=== PATIENT | male | born 1995 | race Caucasian/White ===

== ENCOUNTER 2020-08-23 01:27 | Emergency (ER) | payer OTHER ==
[2020-08-23 01:33] VITALS: BP 137/94; PULSE 80; RESP 18; TEMP 97.7
[2020-08-23] MEDS ORDERED: CEPHALEXIN 500 MG CAP PO STA (02:11)
[2020-08-23] MEDS ORDERED: metroNIDAZOLE 500 MG TAB PO STA (02:12)
--- NOTE | 2020-08-23 02:14 | ED ---
Animal Bite HPI - General Chief Complaint: Animal Bite Stated Complaint: Dog Bite Time Seen by Provider: 08/23/20 01:50 Source: patient, family - History of Present Illness Initial Comments: Patient is a 25-year-old male presenting to the emergency Department with complaints of a dog bite wound to his left hand. Patient states his dog was having a seizure this evening and when the dog was coming out of it, he had his hand too close to the dog bit his left hand. He has puncture wounds near his second metacarpophalangeal joint. He states his tetanus vaccine is up-to-date. The dog's vaccines including rabies are also up-to-date. He has no further complaints at this time. - Related Data Previous Rx's Medication Instructions Recorded Cefuroxime Axetil [Ceftin] 500 mg PO BID 7 Days #14 tab 08/23/20 metroNIDAZOLE [Flagyl] 500 mg PO TID 7 Days #21 tab 08/23/20 Allergies Allergy/AdvReac Type Severity Reaction Status Date / Time amoxicillin [From Augmentin] Allergy Rash/Hives Verified 08/23/20 01:33 clavulanic acid Allergy Rash/Hives Verified 08/23/20 01:33 [From Augmentin] Review of Systems ROS Statement: Those systems with pertinent positive or pertinent negative responses have been documented in the HPI. ROS Other: All systems not noted in ROS Statement are negative. Past Medical History Past Medical History: No Reported History History of Any Multi-Drug Resistant Organisms: None Reported Past Surgical History: No Surgical Hx Reported, Tonsillectomy Additional Past Surgical History / Comment(s): abdominal surgey Past Psychological History: No Psychological Hx Reported Smoking Status: Never smoker Past Alcohol Use History: Occasional Past Drug Use History: None Reported General Exam - General Exam Comments Initial Comments: GENERAL: Patient is well-developed and well-nourished. Patient is nontoxic and in no acute distress. HEAD: Atraumatic, normocephalic. EYES: Pupils equal round and reactive to light, extraocular movements intact, sclera anicteric, conjunctiva are normal. Eyelids were unremarkable. ENT: Nares patent, oropharynx clear without exudates. Moist mucous membranes. NECK: Normal range of motion, supple without lymphadenopathy or JVD. LUNGS: Unlabored respirations. Breath sounds clear to auscultation bilaterally and equal. No wheezes rales or rhonchi. HEART: Regular rate and rhythm without murmurs, rubs or gallops. ABDOMEN: Soft, nontender, normoactive bowel sounds. No guarding, no rebound. No masses appreciated. : Deferred MUSCULOSKELETAL: Patient has full active range of motion of the left hand. Normal extremities with adequate strength and normal range of motion, no pitting or edema. No clubbing or cyanosis. SKIN: Warm, Dry, normal turgor, no rashes. Patient has 3 separate small puncture wounds noted around the second MCP joint, dorsal and palmar aspect. None are requiring sutures, there is no active bleeding. There is no redness to the area, no signs of infection at this point. Course Vital Signs 08/23/20 01:30 Temperature 97.7 F Pulse Rate 80 Respiratory 18 Rate Blood Pressure 137/94 O2 Sat by Pulse 98 Oximetry Medical Decision Making - Medical Decision Making Patient is a 25-year-old male here with a dog bite wound to his second MCP joint of the left hand. He has a few small little puncture wounds around the joint, dorsal and palmar aspect. None requiring sutures. The dog's vaccines are up-to-date including rabies. Patient's tetanus vaccine is also up-to-date. Patient's wound was soaked, cleaned. I did recommend antibiotics, he is ALLERGIC to Augmentin. We will start him on clindamycin, first dose in the ER. He is stable for discharge. He can take ibuprofen for discomfort. Strict r eturn parameters were discussed with the patient he verbalizes understanding. Case discussed with Dr. Au. Disposition Clinical Impression: Dog bite of left hand Disposition: HOME SELF-CARE Condition: Stable Instructions (If sedation given, give patient instructions): Animal Bite (ED) Additional Instructions: Please return to the Emergency Department if symptoms worsen or any other concerns. Please take antibiotics as prescribed, finish entire course. May take Motrin for discomfort, apply ice to the area. Keep wounds clean and dry with mild soap and water. No swimming in lakes, ponds, pools until wounds are completely healed. Follow-up with your primary care physician. Prescriptions: Cefuroxime Axetil [Ceftin] 500 mg PO BID 7 Days #14 tab metroNIDAZOLE [Flagyl] 500 mg PO TID 7 Days #21 tab Is patient prescribed a controlled substance at d/c from ED?: No Referrals: None,Stated [Primary Care Provider] - 1-2 days Time of Disposition: 02:14
== END 2020-08-23 02:23 | disposition home or self-care (01) ==
LOC: EC 01:27
DX: S61.452A Open bite of left hand, initial encounter (principal); Z88.1 Allergy status to other antibiotic agents; W54.0XXA Bitten by dog, initial encounter
CPT/HCPCS: 99283